=== PATIENT | female | born 2000 | race Caucasian/White ===

== ENCOUNTER → 2020-04-12 | Outpatient (CLI) | payer BC, OTHER ==
[~2020-04-12] MED LIST: AMPDEX10 PO; ESCI10 PO; SILSUL1TC TOP
[2020-04-17 09:16] LABS: C DIFFICILE DNA Positive 027/NAP1/BI (Negative)
[2020-04-17 12:09] LABS: FATS, NEUTRAL Normal (.); FATS, TOTAL Increased (.)
== END | disposition home or self-care (01) ==
LOC: LAB 13:00 → LAB SHORT 13:00
PROVIDERS: Family Medicine
DX: K92.1 Melena (principal); R10.30 Lower abdominal pain, unspecified; R19.7 Diarrhea, unspecified; R19.8 Other specified symptoms and signs involving the digestive system and abdomen
CPT/HCPCS: 82705; 87015; 87045; 87046; 87177; 87205; 87209; 87324; 87329; 87493; 87899